=== PATIENT | male | born 1980 | race Caucasian/White ===

== ENCOUNTER 2019-07-03 07:14 | Inpatient (IN) ==
[2019-07-03] MEDS ORDERED: cefOXitin 2,000 MG in Water for inj. (sterile) 20 ML IVP ONE (08:02)
[2019-07-03] MEDS ORDERED: Gabapentin 300 MG CAPSULE PO ONE (08:12)
[2019-07-03] MEDS ORDERED: Celecoxib 200 MG CAPSULE PO ONE (08:12)
[2019-07-03] MEDS ORDERED: Ondansetron 4 MG/2 ML VIAL IVP ONE (08:13)
[2019-07-03] MEDS ORDERED: *HR* OxyCODONE Immed Rel 5 MG TABLET PO PRN (08:13)
[2019-07-03] MEDS ORDERED: Ringers Solution, Lactated 1,000 ML IVC SCH (08:15)
[2019-07-03] MEDS ORDERED: *HR* FentaNYL (PF) 100 MCG/2 ML VIAL ONE ×2 (08:17→10:36)
[2019-07-03] MEDS ORDERED: *HR* Midazolam HCl 2 MG/2 ML VIAL ONE (08:17)
[2019-07-03] MEDS ORDERED: *HR* Propofol 200 MG/20 ML VIAL IVP ONE (08:17)
[2019-07-03] MEDS ORDERED: Ondansetron 4 MG/2 ML VIAL ONE (08:19)
[2019-07-03] MEDS ORDERED: Dexamethasone 4 MG/ML VIAL ONE (08:19)
[2019-07-03] MEDS ORDERED: *HR* Succinylcholine 200 MG/10 ML VIAL IVP ONE (08:19)
[2019-07-03] MEDS ORDERED: *HR* Rocuronium Bromide 50 MG/5 ML VIAL ONE ×2 (08:19→10:25)
[2019-07-03 08:48] LABS: Basophils # 0.1 K/mcL (0.0-0.2); Basophils % 0.9 %; Eosinophils # 0.3 K/mcL (0.0-0.6); Eosinophils % 5.1 %; Hematocrit 44.3 % (37.5-50.1); Hemoglobin 14.7 g/dL (12.9-16.9); Immature Granulocytes % 0.4 % (0-4); Lymphocytes # 1.3 K/mcL (0.6-4.6); Lymphocytes % 22.9 %; Mean Corpuscular HGB Conc 33.2 g/dL (31.6-35.5); Mean Corpuscular Hemoglobin 29.6 pg (28.0-33.3); Mean Corpuscular Volume 89.1 fL (83.0-100.0); Mean Platelet Volume 10.9 fL (9.4-12.4); Monocytes # 0.5 K/mcL (0.0-1.3); Monocytes % 8.3 %; Neutrophils # 3.5 K/mcL (1.6-8.9); Platelet Count 242 K/mcL (140-400); Red Blood Count 4.97 M/mcL (4.19-5.50); Red Cell Distribution Width 12.7 % (11.5-14.5); Segmented Neutrophils % 62.4 %; White Blood Count 5.5 K/mcL (4.3-11.1)
[2019-07-03 09:51] LABS: BUN/Creatinine Ratio 12 (6-26); Blood Urea Nitrogen 13 mg/dL (6-20); Calcium 9.9 mg/dL (8.6-10.3); Carbon Dioxide 23 mEq/L (23-29); Chloride 101 mEq/L (98-107); Glucose 102 mg/dL (70-105); Osmolality,Calculated 282 (280-300); Potassium 3.9 mEq/L (3.5-5.1); Sodium 136 mEq/L (136-145); eGFR For African Americans > 60 (> 60); eGFR For Non-African Americans > 60 (> 60)
[2019-07-03] MEDS ORDERED: Neostigmine Methylsulfate 3 MG/3 ML SYRINGE ONE (10:06)
[2019-07-03] MEDS ORDERED: *HR* HYDROMORPHONE 2 MG/ML VIAL ONE (11:40)
[2019-07-03] MEDS: *HR* HYDROmorphone (PF) 1 MG/ML SYRINGE IVP PRN ×2 (12:23→12:33)
[2019-07-03] MEDS ORDERED: Naloxone 0.4 MG/ML INJ IVP PRN (13:06)
[2019-07-03] MEDS ORDERED: Ondansetron 4 MG/2 ML VIAL IVP PRN (13:06)
[2019-07-03] MEDS ORDERED: Acetaminophen IV 1,000 MG/100 ML INFUS..BTL IVPB ONE (14:19)
[2019-07-03] MEDS ORDERED: Ketorolac 15 MG/ML VIAL IVP ONE (14:20)
[2019-07-03] MEDS: D5% in 0.45% NACL 1,000 ML IVC SCH (14:29)
[2019-07-03] MEDS: *HR* Heparin 5,000 UNIT/ML VIAL SQ SCH (17:15)
[2019-07-03] MEDS: Ketorolac 15 MG/ML VIAL IVP SCH ×2 (17:15→23:59)
[2019-07-04] MEDS: D5% in 0.45% NACL 1,000 ML IVC SCH (04:24)
[2019-07-04 05:16] LABS: Basophils % 0.1 %; Hematocrit 39.8 % (37.5-50.1); Hemoglobin 13.3 g/dL (12.9-16.9); Immature Granulocytes % 0.4 % (0-4); Lymphocytes # 0.9 K/mcL (0.6-4.6); Lymphocytes % 7.6 %; Mean Corpuscular HGB Conc 33.4 g/dL (31.6-35.5); Mean Corpuscular Hemoglobin 30.3 pg (28.0-33.3); Mean Corpuscular Volume 90.7 fL (83.0-100.0); Mean Platelet Volume 10.7 fL (9.4-12.4); Monocytes # 0.7 K/mcL (0.0-1.3); Neutrophils # 10.3 K/mcL (1.6-8.9); Platelet Count 242 K/mcL (140-400); Red Blood Count 4.39 M/mcL (4.19-5.50); Red Cell Distribution Width 12.7 % (11.5-14.5); Segmented Neutrophils % 85.9 %
[2019-07-04 05:36] LABS: BUN/Creatinine Ratio 12 (6-26); Blood Urea Nitrogen 13 mg/dL (6-20); Carbon Dioxide 23 mEq/L (23-29); Chloride 100 mEq/L (98-107); Glucose 147 mg/dL (70-105); Osmolality,Calculated 279 (280-300); Potassium 4.2 mEq/L (3.5-5.1); Sodium 133 mEq/L (136-145); eGFR For African Americans > 60 (> 60); eGFR For Non-African Americans > 60 (> 60)
[2019-07-04] MEDS: Ketorolac 15 MG/ML VIAL IVP SCH ×2 (06:36→12:58)
[2019-07-04] MEDS: *HR* Heparin 5,000 UNIT/ML VIAL SQ SCH (06:36)
[2019-07-04 11:11] VITALS: BP 113/74
== END 2019-07-04 15:19 | disposition home or self-care (01) | DRG 331 ==
LOC: SAMDAY 07:14 → 3ANU 13:47
PROVIDERS: ADMIT Surgery; ATTEND Surgery